=== PATIENT | male | born 1950 | race Caucasian/White ===

== ENCOUNTER 2025-06-04 11:29 | Outpatient (REF) | payer MEDICARE, SELFPAY ==
[2025-06-13 15:09] LABS: ABETA 42/40 Ratio 0.168 (> OR = 0.170); Alzeheimer's Interpretation Low Likelihood; Alzeimer's Disease Score 0.2714; Tau protein phosphorylated 217 0.28 pg/mL (< OR = 0.15)
== END 2025-06-04 11:30 | disposition home or self-care (01) ==
LOC: HO.LAB 11:29
PROVIDERS: PCP Internal Medicine; Referring Provider Student in an Organized Health Care Education/Training Program; Visit Provider Psychiatry & Neurology Neurology
DX: G30.1 Alzheimer's disease with late onset (principal); F02.A0 Dementia in other diseases classified elsewhere, mild, without behavioral disturbance, psychotic disturbance, mood disturbance, and anxiety; Z79.899 Other long term (current) drug therapy
CPT/HCPCS: 36415; 82233; 82234; 84393

== ENCOUNTER 2025-06-04 11:29 | Outpatient (AMB) | payer BC, SELFPAY ==
--- NOTE | 2025-06-04 12:09 | MHC.OFFVIS ---
Intake Visit Reasons: 6m dementia, disc filed in front office Allergies bupropion (From Wellbutrin) Allergy (Unknown, Verified 05/28/25 08:12) Unknown Penicillins Allergy (Unknown, Verified 05/28/25 08:13) Unknown Medication List - Last Reconciled 06/04/25 by Marcia Haines MD donepezil 10 mg PO BEDTIME lisinopril 40 mg PO DAILY metoprolol succinate ER 25 mg PO DAILY tamsulosin 0.8 mg PO DAILY HPI Comments Details: 75 yo RH man with dementia. (Initially seen in Oct 2024: With h/o drinking alcohol on regular basis, with HTN was here for forgetfulness at least noted around 2021 or before when his sone moved to this area and noted it. He was repeating same things again and again. It has worsened since then. He was also having trouble remembering to go to his daughter's house. No headache or head injury. No change in personality. No significant anxiety, depression, or any other behavioral issues. Both is short term and prison memory was affected. He was working and driving.) He is presenting with active symptom management related to mild dementia and arthritis. The arthritis primarily affects his feet, limiting mobility. Despite these limitations, he walks around the house and at work but engages in limited exercise otherwise. His dementia is under management with donepezil, with no change in medication indicated at this time. He reports reasonable sleep patterns, waking up intermittently, and generally stable mood. He is employed and participates in regular social activities. Additional diagnostic testing for Alzheimer's has been discussed as his condition currently remains mild. [facility] Medical History (Updated 06/04/25 @ 12:11 by Marcia Haines MD) Alzheimer disease Review of Systems Const Details: - Musculoskeletal: Reports arthritis in feet. - Neurological: Reports mild dementia, stable mood, and sleep disturbances with nighttime awakenings. - General: Denies new physical activity beyond walking. Physical Exam Neuro Other: He is alert and awake with normal spontaneity of speech fluency comprehension and affect. He was walking cautiously. Assessment & Plan Assessment & Plan (1) Alzheimer dementia: Comment: [facility] brain at [facility] in 2022: Mild atrophy and mild MVD Code(s): G30.9 - Alzheimer's disease, unspecified; F02.80 - Dementia in other diseases classified elsewhere, unspecified severity, without behavioral disturbance, psychotic disturbance, mood disturbance, and anxiety Category: Medical Qualifiers: Alzheimer's disease onset: late onset Dementia severity: mild Dementia behavioral or psychological symptom: without behavioral, psychotic, or mood disturbance or anxiety Qualified Code(s): G30.1 - Alzheimer's disease with late onset; F02.A0 - Dementia in other diseases classified elsewhere, mild, without behavioral disturbance, psychotic disturbance, mood disturbance, and anxiety Plan Impression: Mild dementia probably of Alzheimer type Rec: a: Education b: Abeta/tau testing c: Donepezil 10mg a day Orders: Orders ABeta 42/40 p-tau 217 Eval Today G31.84 - Mild cognitive impairment of uncertain or unknown etiology Medications: New donepezil 10 mg PO BEDTIME 90 tabs 1RF Coding Level of Care Code Est Pt Level 4 (06190) Diagnoses Mild late onset Alzheimer's dementia without behavioral disturbance, psychotic disturbance, mood disturbance, or anxiety G30.1; F02.A0 Alzheimer's disease onset: late onset Dementia severity: mild Dementia behavioral or psychological symptom: without behavioral, psychotic, or mood disturbance or anxiety
== END 2025-06-04 12:20 | disposition home or self-care (01) ==
LOC: HO.HSM 11:29
PROVIDERS: PCP Internal Medicine; Referring Provider Student in an Organized Health Care Education/Training Program; Visit Provider Psychiatry & Neurology Neurology
DX: G30.1 Alzheimer's disease with late onset (principal); F02.A0 Dementia in other diseases classified elsewhere, mild, without behavioral disturbance, psychotic disturbance, mood disturbance, and anxiety
CPT/HCPCS: 99214